=== PATIENT | female | born 1990 ===

== ENCOUNTER 2016-11-27 10:29 | Emergency (ER) | payer MEDICAID ==
[2016-11-27 11:04] VITALS: BP 137/52; PULSE 63; RESP 20; TEMP 98.2; O2SAT 100
--- NOTE | 2016-11-27 11:57 | ED PDOC ---
HPI: Headache Time Seen by Provider: 11/27/16 11:22 Chief Complaint (Nursing): Headache Chief Complaint (Provider): Headache History Per: Patient History/Exam Limitations: no limitations Onset/Duration Of Symptoms: Days (x14) Current Symptoms Are (Timing): Still Present Additional Complaint(s): Olimpia Salter is a 26 year old female with a past medical history of asthma presenting to the ED for an evaluation of an ongoing headache occurring for 2 weeks associated with nausea and photophobia. She denies fever, head injury or neck pain. The patient states she had a CT scan done here 2 weeks ago, which resulted as normal. PMD: [facility] Past Medical History Reviewed: Historical Data, Nursing Documentation, Vital Signs Vital Signs: Last Vital Signs Temp 98.2 F 11/27/16 10:53 Pulse 63 11/27/16 10:53 Resp 20 11/27/16 10:53 BP 137/52 L 11/27/16 10:53 Pulse Ox 100 11/27/16 10:53 - Medical History PMH: Asthma - Family History Family History: States: Unknown Family Hx - Social History Current smoker - smoking cessation education provided: No Ex-Smoker (has not smoked in the last 12 months): No Alcohol: None Drugs: Denies - Allergies Allergies/Adverse Reactions: Allergies Allergy/AdvReac Type Severity Reaction Status Date / Time No Known Allergies Allergy Verified 11/27/16 10:53 Review of Systems ROS Statement: Except As Marked, All Systems Reviewed And Found Negative Constitutional: Negative for: Fever Eyes: Positive for: Other (photophobia) Gastrointestinal: Positive for: Nausea Musculoskeletal: Negative for: Neck Pain, Other (no head injury) Neurological: Positive for: Headache Physical Exam - Reviewed Nursing Documentation Reviewed: Yes Vital Signs Reviewed: Yes - Physical Exam Appears: Positive for: Non-toxic, No Acute Distress Head Exam: Positive for: ATRAUMATIC, NORMOCEPHALIC Eye Exam: Positive for: Normal appearance, EOMI, PERRL (PERRLA) Neck: Positive for: Normal, Painless ROM, Supple Cardiovascular/Chest: Positive for: Regular Rate, Rhythm, Chest Non Tender. Negative for: Murmur Respiratory: Positive for: Normal Breath Sounds. Negative for: Respiratory Distress Gastrointestinal/Abdominal: Positive for: Normal Exam, Soft. Negative for: Tenderness Neurologic/Psych: Positive for: Alert, Oriented (x3). Negative for: Motor/ Sensory Deficits - Laboratory Results Result Diagrams: 11/27/16 12:24 - ECG O2 Sat by Pulse Oximetry: 100 (RA) Pulse Ox Interpretation: Normal Medical Decision Making Medical Decision Making: Time: 11:22 Impression: Headache Plan: * CMP * CBC (with differential) * NS 0.9% 1,000 ml IV 250 mls/hr * Reglan 10 mg IVP * Toradol 30 mg IVP * Zofran Inj 4 mg IVP * Reevaluation Scribe Attestation: Documented by Vania Abraham, acting as a scribe for Boone Merchant MD. Provider Scribe Attestation: All medical record entries made by the Scribe were at my direction and personally dictated by me. I have reviewed the chart and agree that the record accurately reflects my personal performance of the history, physical exam, medical decision making, and the department course for this patient. I have also personally directed, reviewed, and agree with the discharge instructions and disposition. Disposition - Clinical Impression Clinical Impression: Migraine - Patient ED Disposition Is Patient to be Admitted: No - Disposition Disposition: Eloped Disposition Time: 13:02 Condition: FAIR Forms: [employer] ([employer])
[2016-11-27] MEDS: Sodium Chloride 0.9% 1,000 ML IV STA (12:26)
[2016-11-27 12:50] LABS: BASO % 0.4 % (0.0-2.0); EOS # 0.1 K/uL (0.0-0.7); HEMATOCRIT 42.7 % (34.0-47.0); LYMPH # 2.9 K/uL (1.0-4.3); LYMPH % 31.5 % (20.0-40.0); MEAN CELL VOLUME 88.9 fl (81.0-99.0); MEAN CORPUSCULAR HEMOGLOBIN 30.2 pg (27.0-31.0); MEAN CORPUSCULAR HGB CONC 33.9 g/dL (33.0-37.0); MEAN PLATELET VOLUME 10.2 fl (7.2-11.7); MONO # 0.4 K/uL (0.0-0.8); MONO % 4.7 % (0.0-10.0); NEUT # 5.8 K/uL (1.8-7.0); NEUT % 62.4 % (50.0-75.0); NRBC % 0.1 % (0.0-0.0); RED CELL DISTRIBUTION WIDTH 12.2 % (11.5-14.5); WHITE BLOOD COUNT 9.3 K/uL (4.8-10.8)
== END 2016-11-27 13:08 | disposition left against medical advice (07) ==
LOC: H.ER 10:29
DX: G43.909 Migraine, unspecified, not intractable, without status migrainosus (principal)
CPT/HCPCS: 81025; 85025; 96374; 96375; 99283; J1885; J2405; J2765; J7040

== ENCOUNTER 2016-11-28 10:03 | Inpatient (IN) | payer MEDICAID ==
[2016-11-28] MEDS ORDERED: Sodium Chloride 0.9% 1,000 ML IV STA (11:03)
--- NOTE | 2016-11-28 11:05 | ED PDOC ---
HPI: Headache Time Seen by Provider: 11/28/16 10:28 Chief Complaint (Nursing): Headache Chief Complaint (Provider): Headache History Per: Patient Additional Complaint(s): Olimpia Salter is a 26 year old female with a past medical history of asthma presenting to the ED for an evaluation of an ongoing headache occurring since Apr, associated with nausea and photophobia. She denies fever, head injury or neck pain. The patient states she had a CT scan done here 2 weeks ago, which resulted as normal. Pt seen and evaluated here in the ED yesterday for the same; however, had to leave before treatment was complete due to her son getting sick at school. Pt scheduled to see a neurologist Dec 21. PMD: [facility] Past Medical History Vital Signs: Last Vital Signs Temp 97.5 F L 11/28/16 10:29 Pulse 74 11/28/16 10:29 Resp 18 11/28/16 10:29 BP 131/60 11/28/16 10:29 Pulse Ox 100 11/28/16 10:29 - Medical History PMH: Asthma Denies: Chronic Kidney Disease - Family History Family History: States: Unknown Family Hx - Home Medications Home Medications: Ambulatory Orders Medication Instructions Recorded Rizatriptan Benzoate [Maxalt] 10 mg PO DAILY #10 tablet 11/28/16 - Allergies Allergies/Adverse Reactions: Allergies Allergy/AdvReac Type Severity Reaction Status Date / Time No Known Allergies Allergy Verified 11/27/16 10:53 - ECG O2 Sat by Pulse Oximetry: 100 Medical Decision Making Medical Decision Making: CBC resulted WNL from yesterday. Pt afebrile today IV access established and Treatment initiated with IVF, Reglan, Acetaminophen and Toradol to start. no relief of pain obtained. Pt then medicated with Dexamethasone, Mag Sulfate and Depacon. On second re-eval, pt again reports pain is 9/10. Pt then given Imitrex. 1900: pt vomiting and reports headache continues. Labs redrawn and Head CT ordered. Morphine and Zofran administered. Case discussed with ED MD, Dr. Us, who agreed with obs for intractable migraine and vomiting at this time [facility] Mathis, neuro, made aware of consult Disposition - Clinical Impression Clinical Impression: Intractable migraine, Vomiting - Patient ED Disposition Is Patient to be Admitted: Yes - Disposition Disposition Time: 19:25 Condition: STABLE - POA Present On Arrival: None
[2016-11-28] MEDS ORDERED: Dexamethasone 4 mg/1 ml IVP STA (16:41)
[2016-11-28] MEDS ORDERED: Valproate Sodium 500 mg Inj ONE (16:57)
[2016-11-28] MEDS ORDERED: Dexamethasone 4 mg/1 ml ONE ×2 (16:57→17:01)
[2016-11-28] MEDS ORDERED: Magnesium Sulfate 1 GM in Dextrose 5% In Water 100 ML IV ONE (17:00)
[2016-11-28] MEDS ORDERED: Valproate 500 MG in Sodium Chloride 0.9% 100 ML IVPB ONE (17:00)
[2016-11-28 20:10] LABS: BASO % 0.1 % (0.0-2.0); EOS % 0.3 % (0.0-4.0); HEMATOCRIT 41.5 % (34.0-47.0); LYMPH # 1.6 K/uL (1.0-4.3); LYMPH % 12.3 % (20.0-40.0); MEAN CELL VOLUME 88.3 fl (81.0-99.0); MEAN CORPUSCULAR HEMOGLOBIN 29.4 pg (27.0-31.0); MEAN CORPUSCULAR HGB CONC 33.3 g/dL (33.0-37.0); MEAN PLATELET VOLUME 10.2 fl (7.2-11.7); MONO # 0.2 K/uL (0.0-0.8); MONO % 1.4 % (0.0-10.0); NEUT # 10.8 K/uL (1.8-7.0); NEUT % 85.9 % (50.0-75.0); NRBC % 0.1 % (0.0-0.0); RED CELL DISTRIBUTION WIDTH 12.2 % (11.5-14.5); WHITE BLOOD COUNT 12.6 K/uL (4.8-10.8)
[2016-11-28 20:28] LABS: ALB/GLOB RATIO 1.4 (1.0-2.1); ALKALINE PHOSPHATASE 63 U/L (38-126); ALT/SGPT 19 U/L (9-52); AST/SGOT 21 U/L (14-36); BILIRUBIN,TOTAL 0.9 mg/dl (0.2-1.3); BLOOD UREA NITROGEN 11 mg/dl (7-17); CALCIUM 9.6 mg/dL (8.4-10.2); CARBON DIOXIDE 23 mmol/L (22-30); CHLORIDE 106 mmol/L (98-107); GFR AFRICAN-AMERICAN > 60; GLUCOSE,RANDOM 100 mg/dL (65-105); POTASSIUM 4.8 MMOL/L (3.6-5.0); SODIUM 141 mmol/l (132-148); TOTAL PROTEIN 7.9 G/DL (6.3-8.2)
[2016-11-28] MEDS ORDERED: Sodium Chloride 0.9% 1,000 ML IV SCH ×2 (21:00→21:11)
[2016-11-28] MEDS ORDERED: DiphenhydrAMINE 50 mg/ml Inj IVP ONE (21:08)
--- NOTE | 2016-11-28 21:30 | CT ---
EXAM: CT Head Without Intravenous Contrast EXAM DATE/TIME: 11/28/2016 7:17 PM CLINICAL HISTORY: 26 years old, female; Pain; Headache; Migraine; Aura effect not specified; Does not respond to medication; Severity not specified; Additional info: Severe headache. Sent phy. Doc. TECHNIQUE: Axial computed tomography images of the head/brain without intravenous contrast. All CT scans at this facility use one or more dose reduction techniques, viz.: automated exposure control; ma/kV adjustment per patient size (including targeted exams where dose is matched to indication; i.e. head); or iterative reconstruction technique. Coronal and sagittal reformatted images were created and reviewed. COMPARISON: There are no prior studies for comparison. FINDINGS: Brain: Ventricles are normal in size and configuration. There is no midline shift. There are no intra-axial or extra-axial mass lesions or areas of hemorrhage. There are no abnormal fluid collections. Willett-white differentiation is maintained. Ventricles: See above. Bones: Cranial vault is intact. Soft tissues: unremarkable Sinuses: There is no acute sinusitis. Ears and mastoids: Middle ears and mastoids are unremarkable Orbits: Orbital contents are unremarkable. IMPRESSION: No acute intracranial abnormality
--- NOTE | 2016-11-28 22:04 | CP.PCM.HP ---
History of Present Illness - History of Present Illness History of Present Illness: This is a 26 year old female with a past medical history of asthma, who presents to the Emergency Department at [facility] with the complaint of severe intractable headache. She has begun having this headache since April, which she describes as a shooting pain that starts on the right side of her head in the occiput and comes forward and radiates to the left side of her head as well. She also describes the pain as stabbing. The headache comes and goes, and is worse when she does not get enough sleep. She states that she works both day and night shifts at work and because of this, over the last 6 months she has not been sleeping well. She has seen her PMD at [facility] and has prescribed her Ibuprofen as well as an injection if she has a headache ( presumably Imitrex), however this has not worked for her in the past. Her headache became worse today, prompting her to come to the ED. In the ED, she was initially given IV fluid bolus, Reglan, Tylenol, and Toradol; however there was no relief of her pain. She was then given Mag Sulfate, Depacon, and Dexamethasone, again without relief. She began having nausea and one episode of nonbloody nonbilious vomiting; her nausea resolved with Zofran administration. She then had a CT of the head which was negative for any intracranial abnormalities. She was also given Morphine, however this also did not relieve her pain. Given her intractable migraine which did not improve with multiple medications, she is to be placed on observation overnight for continued management with neurology consultation by Dr. Mathis in the morning. Dr. Mathis was informed about the consultation by the ED. Patient denies chest pain, shortness of breath, fevers, chills, nausea, vomiting, diarrhea, headache. Rest of ROS as below. All of the patient's and/or family's questions were answered at the bedside. Present on Admission - Present on Admission Any Indicators Present on Admission: No Review of Systems - Hematologic/Lymphatic Additional comments: GENERAL/CONSTITUTIONAL: The patient denies fever, fatigue, weakness, weight gain or weight loss. HEAD, EYES, EARS, NOSE AND THROAT: Eyes The patient denies pain, redness, loss of vision, double or blurred vision, flashing lights or spots, dryness, Ears, nose, mouth and throat. The patient denies ringing in the ears, loss of hearing , nosebleeds, loss of sense of smell, dry sinuses, sinusitis, post nasal drip, CARDIOVASCULAR: The patient denies chest pain, chest pressure, or irregular heartbeats, RESPIRATORY: The patient denies chronic dry cough, coughing up blood, coughing up mucus, wheezing, or shortness of breath. GASTROINTESTINAL: The patient denies decreased appetite, nausea, vomiting, vomiting blood or coffee ground material, heartburn, regurgitation, diarrhea, constipation, gas, blood in the stools, black tarry stools. GENITOURINARY: The patient denies difficult urination, pain or burning with urination, blood in the urine, frequency, or urgency MUSCULOSKELETAL: The patient denies arm, buttock, thigh or calf cramps. No joint or muscle pain. No muscle weakness or tenderness. No joint swelling, neck pain, back pain. SKIN: The patient denies easy bruising, skin redness, skin rash, hives, sensitivity to sun exposure, tightness, nodules or bumps, hair loss, color changes in the hands or feet with cold. NEUROLOGIC: Headache as in HPI. The patient denies dizziness, fainting, muscle spasm, loss of consciousness, sensitivity or pain in the hands and feet or memory loss. PSYCHIATRIC: The patient denies anxiety, depression, or thoughts of suicide. ENDOCRINE: The patient denies intolerance to hot or cold temperature, flushing, fingernail changes, increased thirst, increased salt intake or decreased sexual desire. HEMATOLOGIC/LYMPHATIC: The patient denies anemia, bleeding tendency or clotting tendency. ALLERGIC/IMMUNOLOGIC: The patient denies rhinitis, asthma, skin sensitivity, latex allergies or sensitivity. Past Patient History - Past Social History Smoking Status: Never Smoked - PULMONARY Hx Asthma: Yes - HEENT Hx HEENT Problems: No - RENAL Hx Chronic Kidney Disease: No - ENDOCRINE/METABOLIC Hx Endocrine Disorders: No - HEMATOLOGICAL/ONCOLOGICAL Hx Blood Disorders: No - INTEGUMENTARY Hx Dermatological Problems: No - MUSCULOSKELETAL/RHEUMATOLOGICAL Hx Musculoskeletal Disorders: No - GASTROINTESTINAL Hx Gastrointestinal Disorders: No - GENITOURINARY/GYNECOLOGICAL Hx Genitourinary Disorders: No - PSYCHIATRIC Hx Psychophysiologic Disorder: No Hx Substance Use: No - SURGICAL HISTORY Hx Surgeries: Yes Hx Section: Yes Other/Comment: scalp biopsy - ANESTHESIA Hx Anesthesia: Yes Hx Anesthesia Reactions: No Meds Allergies/Adverse Reactions: Allergies Allergy/AdvReac Type Severity Reaction Status Date / Time No Known Allergies Allergy Verified 11/27/16 10:53 Physical Exam - Additional Findings Additional findings: EXAM: Vitals stable and reviewed GEN: WDWN, alert, cooperative HEENT: NCAT, PERRL, EOMI Neck: supple, no lymphadenopathy CARDIO: +S1S2, RRR, NO M/R/G LUNG: CTAB, NO W/R/R ABD: soft, NT, ND, no masses, no HSM EXT: no edema, pedal pulses Neuro: AAOx3, Strength equal, bilateral UE/LE Psych: appears anxious. Normal affect. Results - Vital Signs Recent Vital Signs: Last Vital Signs Temp 97.5 F L 11/28/16 10:29 Pulse 89 11/28/16 21:10 Resp 17 11/28/16 21:10 BP 113/75 11/28/16 21:10 Pulse Ox 98 11/28/16 19:53 - Labs Result Diagrams: 11/28/16 19:56 11/28/16 19:56 Labs: Laboratory Results - last 24 hr 11/28/16 11/28/16 19:56 19:56 WBC 12.6 H RBC 4.69 Hgb 13.8 Hct 41.5 MCV 88.3 MCH 29.4 MCHC 33.3 RDW 12.2 Plt Count 233 MPV 10.2 Neut % (Auto) 85.9 H Lymph % (Auto) 12.3 L Prentiss % (Auto) 1.4 Eos % (Auto) 0.3 Baso % (Auto) 0.1 Neut # 10.8 H Lymph # 1.6 Prentiss # 0.2 Eos # 0.0 Baso # 0.0 Sodium 141 Potassium 4.8 Chloride 106 Carbon Dioxide 23 Anion Gap 17 BUN 11 Creatinine 0.7 Est GFR ( Amer) > 60 Est GFR (Non-Af Amer) > 60 Random Glucose 100 Calcium 9.6 Total Bilirubin 0.9 AST 21 ALT 19 Alkaline Phosphatase 63 Total Protein 7.9 Albumin 4.7 Globulin 3.3 Albumin/Globulin Ratio 1.4 Assessment & Plan - Assessment and Plan (Free Text) Plan: ASSESSMENT This is a 26-year-old female with a past medical history of asthma who is being placed on observation overnight for intractable migraine headache. - Intractable migraine - Nausea/vomiting, imrproved with Zofran - History of asthma PLAN - Observation status - Continue IV normal saline at 200 cc/hour - Will give Benadryl 50 mg IV once to prevent akathisia, as she is getting Reglan - Continue Reglan 10 mg IV q8h PRN for migraine with nausea - Zofran 4 mg IV a6h PRN for nausea/vomiting it no resolution with Reglan - Toradol 30 mg IV q6h for moderate pain - Morphine 2 mg IV q4h to be given only for severe pain - Estimated LOS- patient likely to be discharged tomorrow after neurology evaluation
[2016-11-29] MEDS ORDERED: Pneumococcal 23-Valent Vaccine IM ONE (09:00)
[2016-11-29] MEDS: Apap-Butalbital-Caffeine 325-50-40mg Tab PO PRN ×2 (10:00→16:22)
--- NOTE | 2016-11-29 19:02 | CP.PCM.PN ---
Subjective - Date & Time of Evaluation Date of Evaluation: 11/29/16 Time of Evaluation: 13:00 - Subjective Subjective: No fever still with headache no N/V at present since she got the Zofran Headache did not get better with the Opiates nor Toradol no focal deficit denies CP , no SOB Objective - Vital Signs/Intake and Output Vital Signs (last 24 hours): Temp Pulse Resp BP Pulse Ox 98.4 F 54 L 18 109/69 99 11/29/16 16:20 11/29/16 16:20 11/29/16 16:20 11/29/16 16:20 11/29/16 16:20 - Medications Medications: Current Medications Acetaminophen/Butalbital/Caffeine (Fioricet) 1 tab PO Q4 PRN PRN Reason: Migraine headache Last Admin: 11/29/16 16:22 Dose: 1 tab Ketorolac Tromethamine (Toradol) 30 mg IVP Q6 PRN PRN Reason: Pain, moderate (4-7) Last Admin: 11/28/16 22:14 Dose: 30 mg Metoclopramide HCl (Reglan) 10 mg IVP Q8H PRN PRN Reason: Migraine headache Morphine Sulfate (Morphine) 2 mg IVP Q4 PRN PRN Reason: Pain, severe (8-10) Last Admin: 11/29/16 18:26 Dose: 2 mg Ondansetron HCl (Zofran Inj) 4 mg IVP Q6 PRN PRN Reason: Nausea/Vomiting Last Admin: 11/29/16 08:19 Dose: 4 mg - Labs Labs: 11/28/16 19:56 11/28/16 19:56 - Constitutional Appears: No Acute Distress - Head Exam Head Exam: NORMAL INSPECTION, NORMOCEPHALIC - Eye Exam Eye Exam: EOMI, Normal appearance, PERRL Pupil Exam: absent: NORMAL ACCOMODATION - ENT Exam ENT Exam: Mucous Membranes Moist, Normal External Ear Exam - Neck Exam Neck Exam: Full ROM. absent: Meningismus - Respiratory Exam Respiratory Exam: NORMAL BREATHING PATTERN. absent: Rales, Rhonchi, Wheezes, Respiratory Distress - Cardiovascular Exam Cardiovascular Exam: REGULAR RHYTHM, +S1, +S2 - GI/Abdominal Exam GI & Abdominal Exam: Soft, Normal Bowel Sounds. absent: Tenderness - Extremities Exam Extremities Exam: Full ROM, Normal Capillary Refill. absent: Calf Tenderness - Back Exam Back Exam: Full ROM. absent: CVA tenderness (L), CVA tenderness (R) - Neurological Exam Neurological Exam: Alert, Awake, CN II-XII Intact, Oriented x3 Neuro motor strength exam: Left Upper Extremity: 5, Right Upper Extremity: 5, Left Lower Extremity: 5, Right Lower Extremity: 5 - Psychiatric Exam Psychiatric exam: Normal Affect, Normal Mood - Skin Skin Exam: Dry, Normal Color, Warm Assessment and Plan (1) Intractable migraine Status: Acute (2) Vomiting Status: Acute (3) Mild intermittent asthma Status: Chronic (4) DVT prophylaxis Status: Acute - Assessment and Plan (Free Text) Assessment: 26 y/o lady with Hx of Mild Asthma, Came in bec of intractable headache with aura. Pt started having headaches since April, worsened the past few months , admits to some sleep deprivation, denies Depression/ problems. (1) Intractable migraine Status: Acute CT of head : negative Neurology consult Start Fioricet Opiates, Toradol and Imitrex did not help (2) Vomiting likely related to VELOZ Status: Acute Zofran prn (3) Mild intermittent asthma Status: Chronic Albuterol prn (4) DVT prophylaxis Status: Acute SCD
[2016-11-29] MEDS: methylPREDNISolone 125 MG in Sodium Chloride 0.9% 100 ML IVPB SCH (21:04)
--- NOTE | 2016-11-29 23:33 | CON ---
DATE OF ADMISSION: 11/28/2016 REASON FOR CONSULTATION: Headache. CHIEF COMPLAINT: The patient was brought into [facility] with history of progressive headache. From neurological point of view, I was called to evaluate her for further management. HISTORY OF PRESENT ILLNESS: Ms. 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 Headache located and was diffuse in nature, scale lately going up to 10/10, associating with nausea or vomiting, photophobia ,and phonophobia. The patient does not want to take medication; however, medication whatever she has been taking is not helping her. Her headache is not associating with visual disturbances, no focal sensory or motor dysfunction. No history of recent travel. No history of taking medication, not been seen by neurologist for her headache. No family history of headache. No history of head trauma. No history of social trauma or psychological trauma to her. She is a mother of 2 children; however, she had 9 abortions. PAST MEDICAL HISTORY: Asthma, using the inhalers. PERSONAL HISTORY: Denies smoking and alcohol. No history of recreational drugs. REVIEW OF SYSTEMS: A 16-point system been reviewed. From neurological point, the patient does have headache. MEDICATIONS: IV fluids, Furacort, morphine, Reglan, ketorolac, and Zofran. The patient initially was given Depakote and sumatriptan. PHYSICAL EXAMINATION: VITAL SIGNS: Blood pressure 109/69, mean arterial pressure of 82, respiratory rate 16, and temperature is afebrile. NECK: Supple. No carotid bruits. HEART: Sounds irregular. CHEST: Fair air entry. EXTREMITIES: No edema of legs. NEUROLOGIC/MENTAL STATUS EXAMINATION: She is awake, alert, oriented to person, place and time. Speech is clear. Naming, repetition, fluency, comprehension all within normal. CRANIAL NERVE EXAMINATION: Visual field is intact. Pupils reactive to light. Extraocular movement normal. No nystagmus. No facial sensory deficit. No facial asymmetry. Hearing is normal. Tongue is midline. Good gag. MOTOR EXAMINATION: Outstretched hand with eyes closed, no drift is noted. Power symmetric on either side. DEEP TENDON REFLEXES: Biceps, brachialis, and triceps 2+ on either side. Both knees are 2+. Both ankles are 2+. Plantars are downgoing. SENSORY EXAMINATION: Grossly intact. COORDINATION: [id number] est is intact. No ocular or carotid bruits noted. On examination of the skull, diffuse tenderness over the scalp region. WORKUP: The patient's workup; CT of the head unremarkable. No acute changes. Blood workup, WBC 12.6, hemoglobin 13.8, hematocrit 41.5, platelet 233. Sodium 141, potassium 4.8, chloride 106, bicarbonate 23. BUN 11, creatinine 0.7. GFR more than 60. CONCLUSION: Upon reviewing her history and neurological examination, Ms. Olimpia Adam has been presenting with tension headache, which probably superimposed with atypical migraine, which all related to her serious sleep depravation. The current examination does not show any meningeal sign or any long tract sign at present. Considering her age and presenting features, the vasculitis should be ruled out or any autoimmune hypercoagulable stages should be under consideration to be worked up. RECOMMENDATION: 1. IV fluids. 2.Pulsing dose of steroids for 3 days. 3. The patient can get Elavil 10 mg at night. The patient's condition been well discussed. The patient also should have a blood workup as recommended. The patient will be followed closely with you. Pravin Mathis MD MTDD
[2016-11-30] MEDS: methylPREDNISolone 125 MG in Sodium Chloride 0.9% 100 ML IVPB SCH ×3 (00:20→16:08)
--- NOTE | 2016-11-30 11:10 | CP.PCM.PN ---
Subjective - Date & Time of Evaluation Date of Evaluation: 11/30/16 Time of Evaluation: 11:00 - Subjective Subjective: No fever still with headache, sl better feels some relief with Fioricet ( occipital pain less ) and Morphine takes the edge off no CP no SOB no Focal neuro defict no abd pain nausea resolved Objective - Vital Signs/Intake and Output Vital Signs (last 24 hours): Temp Pulse Resp BP Pulse Ox 97.9 F 75 18 103/55 L 98 11/30/16 07:33 11/30/16 07:33 11/30/16 07:33 11/30/16 07:33 11/30/16 07:33 - Medications Medications: Current Medications Acetaminophen/Butalbital/Caffeine (Fioricet) 1 tab PO Q4 PRN PRN Reason: Migraine headache Last Admin: 11/29/16 16:22 Dose: 1 tab Amitriptyline HCl (Elavil) 10 mg PO HS ELI Last Admin: 11/29/16 21:04 Dose: 10 mg Dextrose/Sodium Chloride (Dextrose 5%-0.9% Ns 500 Ml) 500 mls @ 100 mls/hr IV .Q5H ELI Stop: 11/30/16 19:03 Last Admin: 11/30/16 05:31 Dose: Not Given Methylprednisolone 125 mg/ (Sodium Chloride) 102 mls @ 204 mls/hr IVPB Q8 ELI Stop: 12/01/16 23:59 Last Admin: 11/30/16 08:44 Dose: 204 mls/hr Ketorolac Tromethamine (Toradol) 30 mg IVP Q6 PRN PRN Reason: Pain, moderate (4-7) Last Admin: 11/28/16 22:14 Dose: 30 mg Metoclopramide HCl (Reglan) 10 mg IVP Q8H PRN PRN Reason: Migraine headache Morphine Sulfate (Morphine) 2 mg IVP Q4 PRN PRN Reason: Pain, severe (8-10) Last Admin: 11/30/16 08:51 Dose: 2 mg Ondansetron HCl (Zofran Inj) 4 mg IVP Q6 PRN PRN Reason: Nausea/Vomiting Last Admin: 11/29/16 08:19 Dose: 4 mg - Labs Labs: 11/28/16 19:56 11/28/16 19:56 - Constitutional Appears: No Acute Distress - Head Exam Head Exam: NORMAL INSPECTION, NORMOCEPHALIC - Eye Exam Eye Exam: EOMI, Normal appearance, PERRL Pupil Exam: absent: NORMAL ACCOMODATION - ENT Exam ENT Exam: Mucous Membranes Moist, Normal External Ear Exam - Neck Exam Neck Exam: Full ROM. absent: Meningismus - Respiratory Exam Respiratory Exam: NORMAL BREATHING PATTERN. absent: Rales, Rhonchi, Wheezes, Respiratory Distress - Cardiovascular Exam Cardiovascular Exam: REGULAR RHYTHM, +S1, +S2 - GI/Abdominal Exam GI & Abdominal Exam: Soft, Normal Bowel Sounds. absent: Tenderness - Extremities Exam Extremities Exam: Full ROM, Normal Capillary Refill. absent: Calf Tenderness - Back Exam Back Exam: Full ROM. absent: CVA tenderness (L), CVA tenderness (R) - Neurological Exam Neurological Exam: Alert, Awake, CN II-XII Intact, Oriented x3 Neuro motor strength exam: Left Upper Extremity: 5, Right Upper Extremity: 5, Left Lower Extremity: 5, Right Lower Extremity: 5 - Psychiatric Exam Psychiatric exam: Normal Affect, Normal Mood - Skin Skin Exam: Dry, Normal Color, Warm Assessment and Plan (1) Intractable migraine Status: Acute (2) Vomiting Status: Acute (3) Mild intermittent asthma Status: Chronic (4) DVT prophylaxis Status: Acute - Assessment and Plan (Free Text) Assessment: 26 y/o lady with Hx of Mild Asthma, came in bec of intractable headache with aura. Pt started having headaches since April, worsened the past few months , admits to some sleep deprivation, denies Depression/ problems. (1) Intractable migraine with [id number] associated Tension Headache Status: Acute CT of head : negative Neurology consulted - need to r/o Vasculitis - rec that Pt be started on IV Solumedrol 125 mg q 8 x 3 days was also started by Dr Mathis on Elavil FLORENTIN, Antiphopholipid ab Started Fioricet Opiates, Toradol and Imitrex did not help (2) Vomiting likely related to VELOZ Status: Acute Zofran prn (3) Mild intermittent asthma Status: Chronic Albuterol prn (4) DVT prophylaxis Status: Acute SCD
[2016-11-30] MEDS ORDERED: HYDROmorphone 0.5 mg/0.5 ml ISec ONE (16:47)
[2016-11-30] MEDS ORDERED: HYDROmorphone 0.5 mg/0.5 ml ISec IVP STA (16:52)
[2016-11-30] MEDS ORDERED: Gadodiamide 287 MG/ML VIAL (15ML) IV ONE (18:29)
--- NOTE | 2016-11-30 20:00 | PN ---
DATE: 11/30/2016 TIME OF EVALUATION: 6:35 p.m. NEUROLOGICAL PROBLEM: Status migrainosus. PHYSICAL EXAMINATION VITAL SIGNS: Blood pressure 113/68, mean arterial pressure 83, respiratory rate 16, temperature 98.6, pulse rate 65. The patient's examination which is unchanged to compare with my yesterday's exam. The patient's photosensitivities is completely resolved. The patient is very comfortable. On exam today with lights on, nausea and vomiting has completely stopped. She has not taken medication. She slept good. She woke up at 5 o'clock. However, she had some episode of headache this afternoon, which scared her again. LABORATORY DATA: The workup for her headache including vasculitis and MRI of the brain to rule out space-occupying lesion as requested, which is around the process of getting it. The patient is on second day of steroids. We encouraged her p.o. fluids. Steroids can be stopped tomorrow as requested. If everything is normal, if medically stable, the patient can be discharged and should have follow up with me as an outpatient. Pravin Mathis MD
[2016-12-01] MEDS: methylPREDNISolone 125 MG in Sodium Chloride 0.9% 100 ML IVPB SCH ×3 (01:10→18:02)
[2016-12-01] MEDS ORDERED: Enoxaparin 40 mg Syringe SC SCH (09:00)
[2016-12-01] MEDS: Apap-Butalbital-Caffeine 325-50-40mg Tab PO PRN ×2 (09:06→15:43)
--- NOTE | 2016-12-01 09:20 | MRI ---
PROCEDURE: MRI BRAIN WITH AND WITHOUT CONTRAST HISTORY: Mass vs stroke COMPARISON: Noncontrast head CT from 11/28/2016 TECHNIQUE: Multiplanar, multisequence MR images of the brain were obtained with and without intravenous contrast enhancement. 12 cc Omniscan was injected intravenously. FINDINGS: HEMORRHAGE: None DWI: No evidence of an acute or early subacute infarction. BRAIN PARENCHYMA: Willett-white matter differentiation is preserved. There is no mass, mass effect or abnormal extra-axial fluid collection. There is no territorial infarction. The midline sagittal structures are normal. ENHANCEMENT: No abnormal intracranial enhancement. VENTRICLES: The ventricles are normal in size, shape and configuration. CRANIUM: There is normal bone marrow signal pattern. ORBITS: Grossly unremarkable. PARANASAL SINUSES/MASTOIDS: Predominantly clear. VASCULAR SYSTEM: There are normal signal voids in the larger intracranial arteries. . OTHER FINDINGS: None . IMPRESSION: Normal pre and post contrast enhanced MRI of the brain. A preliminary report was provided by [employer] services.
--- NOTE | 2016-12-01 09:21 | MRI ---
PROCEDURE: Magnetic Resonance Angiography Brain HISTORY: headache COMPARISON: None available. TECHNIQUE: 3D time of flight MR angiography of the intracranial arteries was performed. Rotating maximum intensity projection images were generated. FINDINGS: INTERNAL CAROTID ARTERIES: Patent and normal in caliber. The skull base, petrous, cavernous and supraclinoid segments are bilaterally widely patient. ANTERIOR CEREBRAL ARTERIES: Patent and normal in caliber. The right A1 segment is hypoplastic, an anatomic variant. Smaller distal branches unremarkable, as visualized. MIDDLE CEREBRAL ARTERIES: Patent and normal in caliber. M1 and M2 segments are widely patent. Perisylvian branches grossly symmetric. POSTERIOR CIRCULATION: Basilar Artery: Unremarkable. Distal Vertebral Arteries: Unremarkable. The left vertebral artery is dominant, an anatomic variant. Posterior Cerebral Arteries: Unremarkable. Posterior Inferior Cerebellar Arteries: Unremarkable. ANEURYSM/ VASCULAR MALFORMATIONS: None. OTHER FINDINGS: None. IMPRESSION: Normal MR angiography of the brain. A preliminary report was provided by [employer] [facility].
--- NOTE | 2016-12-01 12:33 | CP.PCM.DIS ---
Provider - Provider Date of Admission: 11/28/16 19:50 Attending physician: Thompson Cruz DO Consults: Dr. Mathis, neurology Time Spent in preparation of Discharge (in minutes): 35 Diagnosis - Discharge Diagnosis (1) Intractable migraine Status: Acute Priority: High (2) Mild intermittent asthma Status: Chronic Priority: Medium (3) Vomiting Status: Resolved Hospital Course - Lab Results Lab Results: Most Recent Lab Values WBC 12.6 K/uL (4.8-10.8) H 11/28/16 19:56 RBC 4.69 Mil/uL (3.80-5.20) 11/28/16 19:56 Hgb 13.8 g/dL (12.0-16.0) 11/28/16 19:56 Hct 41.5 % (34.0-47.0) 11/28/16 19:56 MCV 88.3 fl (81.0-99.0) 11/28/16 19:56 MCH 29.4 pg (27.0-31.0) 11/28/16 19:56 MCHC 33.3 g/dL (33.0-37.0) 11/28/16 19:56 RDW 12.2 % (11.5-14.5) 11/28/16 19:56 Plt Count 233 K/uL (130-400) 11/28/16 19:56 MPV 10.2 fl (7.2-11.7) 11/28/16 19:56 Neut % (Auto) 85.9 % (50.0-75.0) H 11/28/16 19:56 Lymph % (Auto) 12.3 % (20.0-40.0) L 11/28/16 19:56 Nance % (Auto) 1.4 % (0.0-10.0) 11/28/16 19:56 Eos % (Auto) 0.3 % (0.0-4.0) 11/28/16 19:56 Baso % (Auto) 0.1 % (0.0-2.0) 11/28/16 19:56 Neut # 10.8 K/uL (1.8-7.0) H 11/28/16 19:56 Lymph # 1.6 K/uL (1.0-4.3) 11/28/16 19:56 Nance # 0.2 K/uL (0.0-0.8) 11/28/16 19:56 Eos # 0.0 K/uL (0.0-0.7) 11/28/16 19:56 Baso # 0.0 K/uL (0.0-0.2) 11/28/16 19:56 ESR 8 mm/hr (0-20) 11/30/16 17:50 Sodium 141 mmol/l (132-148) 11/28/16 19:56 Potassium 4.8 MMOL/L (3.6-5.0) 11/28/16 19:56 Chloride 106 mmol/L (98-107) 11/28/16 19:56 Carbon Dioxide 23 mmol/L (22-30) 11/28/16 19:56 Anion Gap 17 (10-20) 11/28/16 19:56 BUN 11 mg/dl (7-17) 11/28/16 19:56 Creatinine 0.7 mg/dL (0.7-1.2) 11/28/16 19:56 Est GFR ( Amer) > 60 11/28/16 19:56 Est GFR (Non-Af Amer) > 60 11/28/16 19:56 Random Glucose 100 mg/dL (65-105) 11/28/16 19:56 Calcium 9.6 mg/dL (8.4-10.2) 11/28/16 19:56 Total Bilirubin 0.9 mg/dl (0.2-1.3) 11/28/16 19:56 AST 21 U/L (14-36) 11/28/16 19:56 ALT 19 U/L (9-52) 11/28/16 19:56 Alkaline Phosphatase 63 U/L (38-126) 11/28/16 19:56 C-React Prot High Sens 1.70 mg/L (1.00-3.00) 11/30/16 17:50 Total Protein 7.9 G/DL (6.3-8.2) 11/28/16 19:56 Albumin 4.7 g/dL (3.5-5.0) 11/28/16 19:56 Globulin 3.3 gm/dL (2.2-3.9) 11/28/16 19:56 Albumin/Globulin Ratio 1.4 (1.0-2.1) 11/28/16 19:56 TSH 3rd Generation 1.15 mIU/ML (0.46-4.68) 11/30/16 17:50 Complement C3 101.0 mg/dL (88.0-165.0) 11/30/16 17:50 Complement C4 32.9 mg/dL (14.0-44.0) 11/30/16 17:50 Hepatitis A IgM Ab Negative (NEGATIVE) 11/30/16 17:50 Hep Bs Antigen Negative (NEGATIVE) 11/30/16 17:50 Hep B Core IgM Ab Negative (NEGATIVE) 11/30/16 17:50 Hepatitis C Antibody Negative (NEGATIVE) 11/30/16 17:50 HIV 1&2 Antibody Screen Negative (NEGATIVE) 11/30/16 17:50 - Hospital Course Hospital Course: This is a 26 year old female with a past medical history of asthma, who presents to the Emergency Department at [facility] with the complaint of severe intractable headache. She has begun having this headache since April, which she describes as a shooting pain that starts on the right side of her head in the occiput and comes forward and radiates to the left side of her head as well. She also describes the pain as stabbing. The headache comes and goes, and is worse when she does not get enough sleep. She states that she works both day and night shifts at work and because of this, over the last 6 months she has not been sleeping well. As her headache did not improve despite Reglan, Tylenol , Toradol, then Mag sulfate, depacon, and dexamethasone, she was admitted to the hospital for further workup by neurology. During the course of her stay she was given 3 days of IV Solu-medrol by neurology to treat for possible vasculitis ; however both her MRI of the brain and head MRA were found to be negative without any intracranial abnormalities. The patient was diagnosed with an acute intractable tension migraine. During the course of her stay her headache gradually improved somewhat, however it is still present. She was also given Reglan and Zofran for nausea which also resolved this. Today she is to be discharged to home after conferring with neurology with scripts for Fioricet and Indomethicin. Discharge Exam - Additional Findings Additional findings: EXAM: Vitals stable and reviewed GEN: WDWN, alert, cooperative, but tearful on exam HEENT: NCAT, PERRL, EOMI Neck: supple, no lymphadenopathy CARDIO: +S1S2, RRR, NO M/R/G LUNG: CTAB, NO W/R/R ABD: soft, NT, ND, no masses, no HSM EXT: no edema, pedal pulses Neuro: AAOx3, Strength equal, bilateral UE/LE Psych: normal mood, normal affect Discharge Plan - Discharge Medications Prescriptions: Acetaminophen/Butalbital/Caf [Fioricet] 1 tab PO Q4 PRN #30 tab PRN Reason: Migraine Headache Indomethacin [Indocin] 25 mg PO TID PRN #60 cap PRN Reason: Headache - Follow Up Plan Condition: STABLE Disposition: HOME/ ROUTINE Instructions: Migraine Headache (ED) Additional Instructions: ff up with PMD Dr Edu almazan appt with Dr Mathis in 1 wk Referrals: Pravin Mathis MD [Medical Doctor] -
[2016-12-01 13:16] LABS: ASO TITER =>400 IU/ML (NEGATIVE)
[2016-12-01 16:30] VITALS: BP 104/67; PULSE 62; RESP 19; TEMP 98.5; O2SAT 97
[2016-12-02 06:29] LABS: B2 GLYCOPROTEIN I AB(IGA) <9 SAU (<=20); B2 GLYCOPROTEIN I AB(IGG) <9 SGU (<=20); B2 GLYCOPROTEIN I AB(IGM) <9 SMU (<=20)
[2016-12-02 15:21] LABS: B2 GLYCOPROTEIN I AB(IGA) <9 SAU (<=20); B2 GLYCOPROTEIN I AB(IGG) <9 SGU (<=20); B2 GLYCOPROTEIN I AB(IGM) <9 SMU (<=20)
[2016-12-03 04:02] LABS: CARDIOLIPIN AB (IGA) <11 APL (<=11)
[2016-12-03 04:02] LABS: CARDIOLIPIN AB (IGA) <11 APL (<=11)
[2016-12-03 07:48] LABS: PHOSPHATIDYLSERINE AB IGA <20 U/mL (<20); PHOSPHATIDYLSERINE AB IGM <25 U/mL (<25)
[2016-12-04 08:27] LABS: 18 KD (IGG) BAND Nonreactive; 23 KD (IGG) BAND Nonreactive; 23 KD (IGM) BAND Nonreactive; 28 KD (IGG) BAND Nonreactive; 30 KD (IGG) BAND Nonreactive; 39 KD (IGG) BAND Nonreactive; 39 KD (IGM) BAND Nonreactive; 41 KD (IGG) BAND Nonreactive; 41 KD (IGM) BAND Nonreactive; 45 KD (IGG) BAND Nonreactive; 58 KD (IGG) BAND Nonreactive; 66 KD (IGG) BAND Nonreactive; 93 KD (IGG) BAND Nonreactive; LYME DISEASE INTERP (IGG) Negative (Negative)
[2016-12-06 05:33] LABS: PHOSPHATIDYLSERINE AB IGA <20 U/mL (<20); PHOSPHATIDYLSERINE AB IGM <25 U/mL (<25)
== END 2016-12-01 18:25 | disposition home or self-care (01) | DRG 891 ==
LOC: H.ER 10:03 → H.EROBSV 10:43 → OBSVTOIN 19:50 → H.ERHOLD 20:26 → H.MEDSURG1 21:30
PROVIDERS: ADMIT Internal Medicine; ATTEND Internal Medicine
PROC: 3E0234Z Introduction of Serum, Toxoid and Vaccine into Muscle, Percutaneous Approach (ICD-10-PCS; principal; 2016-11-29)
DX: G43.119 Migraine with aura, intractable, without status migrainosus (principal); G44.209 Tension-type headache, unspecified, not intractable; J45.20 Mild intermittent asthma, uncomplicated; Z72.820 Sleep deprivation; Z23 Encounter for immunization